=== PATIENT | female | born 1985 | race Two or more races ===

== ENCOUNTER 2016-10-07 18:05 | Observation (INO) | payer MEDICAID, OTHER ==
[~2016-10-07] VITALS: Ht 157.5 cm; Wt 99.8 kg
[2016-10-07] MEDS ORDERED: LACTATED RINGER'S 1,000 ML IV ONE (18:56)
[2016-10-07] MEDS ORDERED: LACTATED RINGER'S 1,000 ML IV SCH (18:56)
[2016-10-07 19:33] LABS: Basophils # (auto) 0 uL; Basophils % (auto) 0.4 % (0.0-2.0); DEFINITIVE VIEW TRANSMISSION; Eosinophils # (auto) 0.1 uL; Eosinophils % (auto) 0.9 % (0.0-7.0); Hematocrit 30.6 % (36.0-46.0); Hemoglobin 9.6 g/dL (12.2-16.2); Lymphocytes # (auto) 1.9 uL; Lymphocytes % (auto) 24.9 % (10.0-50.0); Mean Corpuscular Hemoglobin 26.5 pg (28.0-32.0); Mean Corpuscular Hgb Conc. 31.4 g/dL (32.0-36.0); Mean Corpuscular Volume 84.6 fL (80.0-100.0); Mean Platelet Volume 9.7 fL (7.4-10.4); Monocytes # (auto) 0.6 uL; Monocytes % (auto) 7.5 % (0.0-12.0); Neutrophils # (auto) 4.9 uL; Neutrophils % (auto) 66.3 % (37.0-80.0); Platelet Count (auto) 232 10^3/uL (140-450); Red Cell Distribution Width 13.6 % (11.6-16.0); White Blood Cell 7.4 10^3/uL (4.4-10.8)
[2016-10-07] MEDS ORDERED: BETAMETHASONE ACET (6MG/ML) 5ML VIAL ONE (20:27)
[2016-10-07] MEDS ORDERED: BETAMETHASONE ACET (6MG/ML) 5ML VIAL IM ONE (20:30)
[2016-10-07 20:37] LABS: Urine Bilirubin Negative (Negative); Urine Color Yellow (Yellow); Urine Ketone Negative (Negative); Urine Nitrite Negative (Negative); Urine RBC 297 /hpf (0 - 4); Urine Squamous Epithelial Cell FEW /hpf (<5); Urine Urobilinogen Normal (Negative); Urine pH 6.5 (5.0-8.0)
[2016-10-07 20:39] LABS: Urine Blood 3+ /uL (Negative); Urine Glucose 1+ mg/dL (Normal)
[2016-10-07 20:42] LABS: INR 0.96 (0.9-1.15); Partial Thromboplastin Time 25.9 sec (22.64-33.71); Prothrombin Time 9.9 sec (9.37-12.3)
== END 2016-10-07 21:24 | disposition home or self-care (01) | DRG 566 ==
LOC: LDRP 18:05 → EDBD 18:05
PROVIDERS: ADMIT Specialist; ATTEND Specialist
DX: O46.92 Antepartum hemorrhage, unspecified, second trimester (principal); O99.332 Smoking (tobacco) complicating pregnancy, second trimester; Z3A.27 27 weeks gestation of pregnancy
CPT/HCPCS: 36415; 59025; 76815; 81001; 81002; 85025; 85610; 85730; 96360; 96361; G0378; G0434; J0702; 85362; 96365; 96366; 96372